=== PATIENT | female | born 1990 | race Native Hawaiian/Other Pacific Islander ===

== ENCOUNTER 2016-06-16 19:07 | Emergency (ER) | payer BC, OTHER ==
[~2016-06-16] VITALS: Ht 160 cm; Wt 71.7 kg
--- OUTSIDE RECORDS SUMMARY | 2016-06-16 19:12 | XMS REPORT ---
Author Author TYRESE GORDON [facility] eClinicalWorks Address Unknown Phone Unavailable Care Team Providers Care Cad Cam Programmer Name Role Phone TYRESE GORDON CP Unavailable Allergies, Adverse Reactions, Alerts Substance Reaction Event Type N.K.D.A. Info Not Available Non Drug Allergy Problems Problem Type Condition Code Onset Dates Condition Status Assessment Encounter for counseling regarding contraception Z30.9 Active Assessment Oral contraceptive pill surveillance Z30.41 Active Problem Oral contraceptive pill surveillance Z30.41 Active Assessment Routine screening for STI (sexually transmitted infection) Z11.3 Active Assessment Screening for malignant neoplasm of cervix Z12.4 Active Medications Medication Code System Code Instructions Start Date End Date Status Dosage Nuris 28 [facility] [address]-55 3-0.03 MG Orally Once a day Mar 12, 2015 1 tablet Procedures Procedure Coding System Code Date No Charge CPT-4 36300 Mar 12, 2015 TRICHOMONAS VAGIN, DIR PROBE CPT-4 69330 Mar 12, 2015 URINE TEST CPT-4 63054 Mar 12, 2015 SPECIMEN HANDLING CPT-4 50216 Mar 12, 2015 CULTURE, BACTERIA, OTHER CPT-4 35513 Mar 12, 2015 Office Visit, New Pt., Level 3 CPT-4 96350 Mar 12, 2015 Vital Signs Date/Time: Mar 12, 2015 Temperature 97.9 F Weight 156.0 lbs Height 64 in BMI 26.77 Index Blood Pressure Diastolic 68 mmHg Blood Pressure Systolic 106 mmHg Cardiac Monitoring Heart Rate 76 bpm Results Name Result Date Reference Range Unit Abnormality Flag TEST, URINE (IN HOUSE) ----RESULTS negative [id number] ----Lot # [id number] ----Control + [id number] ----Exp date [id number] CULTURE, GENITAL ----Genital Culture, Routine Final report [id number] A Summary Purpose eClinicalWorks Submission
[2016-06-16] MEDS ORDERED: IBUPROFEN TABLET 200 MG TAB PO STA (19:42)
--- NOTE | 2016-06-16 20:45 | ED Cough/URI ---
General Chief Complaint: Fever-Adult/Adol Stated Complaint: FEVER Nursing Triage Note: PT ET INTERPRETOR REPORT FEVER STARTING TUES. SHE C/O SORE THROAT, BODY ACHES, COUGH, RUNNY NOSE, CLOUDY URINE. REPORTS SHE WAS TREATED FOR STREP THROAT 3-4 WEEKS AGO. History of Present Illness Time seen by provider: 20:25 Initial Comments Evaluation for cough and fever 3-4 days Timing/Duration: week Severity/Quality: dry cough Allergies and Home Medications Allergies Coded Allergies: No Known Drug Allergies (Unverified , 06/16/16) Home Medications Ciprofloxacin HCl 500 Mg Tablet #6 500 MG PO BID Prescribed by: JOSHUA MCNAMARA on 06/16/162144 Phenazopyridine HCl 100 Mg Tablet #6 100 MG PO Q8H Prescribed by: JOSHUA MCNAMARA on 06/16/162144 Constitutional: no symptoms reported see HPI EENTM: no symptoms reported see HPINo throat pain Respiratory: see HPI cough Cardiovascular: no symptoms reported see HPI Gastrointestinal: no symptoms reported see HPI Genitourinary: see HPI dysuria frequency hematuria pain Musculoskeletal: no symptoms reported see HPI Skin: no symptoms reported see HPI Psychiatric/Neurological: No Symptoms Reported See HPI Hematologic/Lymphatic: No Symptoms Reported See HPI Immunological/Allergic: no symptoms reported see HPI All Other Systems Reviewed Negative Unless Noted: Yes Past Kpofqgy-Rseszt-Ehlzce Hx Patient Social History Alcohol Use: Denies Use Recreational Drug Use: No Smoking Status: Never a Smoker 2nd Hand Smoke Exposure: No Recent Foreign Travel: No Contact w/Someone Who Travel: No Recent Infectious Disease Expo: No Recent Hopitalizations: No Seasonal Allergies Seasonal Allergies: No Surgeries HX Surgeries: No Respiratory Hx Respiratory Disorders: No Cardiovascular Hx Cardiac Disorders: No Neurological Hx Neurological Disorders: No Reviewed Nursing Assessment Reviewed/Agree w Nursing PMH: Yes Physical Exam Vital Signs Vital Sign - Last 12Hours 06/16/16 19:25 Temp 103.6 Pulse 135 Resp 20 B/P 116/73 Capillary Refill : Less Than 3 Seconds General Appearance: WD/WN no apparent distress Eyes: Bilateral Eye EOMI, Bilateral Eye Normal Inspection, Bilateral Eye PERRL HEENT: PERRL/EOMI TMs normal pharynx normal Neck: non-tender full range of motion supple normal inspectionNo lymphadenopathy (R), No lymphadenopathy (L) Respiratory: chest non-tender lungs clear normal breath sounds Cardiovascular: normal peripheral pulses regular rate, rhythm no murmur Gastrointestinal: normal bowel sounds non tender soft no organomegaly no pulsatile massNo distended, No guarding, No rebound, other (trace suprapubic pain no CVA tenderness) Neurologic/Psychiatric: no motor/sensory deficits alert normal mood/affect oriented x 3 Skin: normal color warm/dry Lymphatic: no adenopathy Progress/Results/Core Measures Results/Orders Lab Results Laboratory Tests Test 06/16/16 20:50 06/16/16 20:56 Range/Units Group A Streptococcus Screen NEGATIVE NEGATIVE Urine Bacteria LARGE H /HPF Urine Bilirubin NEGATIVE NEGATIVE Urine Casts NONE /LPF Urine Clarity SLIGHTLY CLOUDY Urine Color YELLOW Urine Crystals NONE /LPF Urine Culture Indicated YES Urine Glucose (UA) NEGATIVE NEGATIVE Urine Ketones 2+ H NEGATIVE Urine Leukocyte Esterase 2+ H NEGATIVE Urine Mucus SMALL H /LPF Urine Nitrite NEGATIVE NEGATIVE Urine Protein NEGATIVE NEGATIVE Urine RBC 5-10 H /HPF Urine RBC (Auto) 2+ H NEGATIVE Urine Specific Parrish 1.010 L 1.016-1.022 Urine Squamous Epithelial Cells 10-25 H /HPF Urine Urobilinogen NORMAL NORMAL MG/DL Urine WBC 5-10 H /HPF Urine pH 8 5-9 Micro Results Microbiology 06/16/16 Influenza Types A,B Antigen (TANNA) - Final, Complete My Orders Orders-JOSHUA MCNAMARA Influenza A And B Antigens (06/16/16 19:42) Ibuprofen Tablet (Motrin Tablet) (06/16/16 19:42) Ua Culture If Indicated (06/16/16 20:46) Rapid Strep A Screen (06/16/16 20:52) Urine Culture (06/16/16 20:56) Ciprofloxacin Tablet (Cipro Tablet) (06/17/16 09:00) Phenazopyridine Tablet (Pyridium Tablet) (06/16/16 21:45) Ciprofloxacin Tablet (Cipro Tablet) (06/16/16 21:52) Medications Given in ED Current Medications Medications Dose Ordered Sig/Enedelia Route Start Time Stop Time Status Last Admin Dose Admin Phenazopyridine HCl 100 mg ONCE ONCE PO 06/16/16 21:45 06/16/16 21:46 DC 06/16/16 21:57 100 MG Vital Signs/I&O Vital Sign - Last 12Hours 06/16/16 19:25 Temp 103.6 Pulse 135 Resp 20 B/P 116/73 Blood Pressure Mean: 87 Progress Note : Time: 20:25 Progress Note Initial evaluation completed, will complete a influenza swab, rapid strep, and UA. 2039 Temp down to 100.8 2119 discussed results of tests with patient and her sister, the influenza swab is negative for flu A and B, the UA is indicating a urinary tract infection, the rapid strep is negative. Will start treatment with Cipro 500 mg and Pyridium 200 mg by mouth. 2199 blood pressure 93/59 and pulse 108. Patient encouraged to drink fluids. 2229 patient drank 20 ounces of water. States she is feeling fine. Temp 99.2. Blood pressure 103/73 pulse 88 apically. Patient and her sister verbalized understanding of importance take continue increasing her fluid intake. ECG Initial ECG Impression Date: Jun 16, 2016 Departure Impression Impression: Primary Impression: Urinary tract infection Qualified Code: N30.01 - Acute cystitis with hematuria Additional Impression: Upper respiratory infection Qualified Code: J06.9 - Acute upper respiratory infection, unspecified Disposition: HOME, SELF-CARE Condition: Improved Departure-Patient Inst. Referrals: NO,LOCAL PHYSICIAN (PCP) Primary Care Physician Patient Instructions: Flu, Adult (DC), Urinary Tract Infection, Adult (DC) Add. Discharge Instructions: All discharge instructions reviewed with patient and/or family. Voiced understanding. Increase fluid intake. Drink 1 glass of cranberry juice or eat a couple blueberries daily. Avoid baths, use shower. Take all of antibiotic. Return to emergency department for increased symptoms, increased pain, changes in symptoms, increased blood in urine, or new problems. Scripts Phenazopyridine HCl (Pyridium)100 Mg [id number] Mg PO Q8H Pain #6 TAB Ref 0 Prov:JOSHUA MCNAMARA 06/16/16 Ciprofloxacin HCl (Cipro)500 Mg [id number] Mg PO BID #6 TAB Ref 0 Prov:JOSHUA MCNAMARA 06/16/16 JOSHUA MCNAMARA Jun 16, 2016 20:45
[2016-06-16 21:01] LABS: BILIRUBIN,URINE NEGATIVE (NEGATIVE); KETONES,URINE 2+ (NEGATIVE); LEUKOCYTE ESTERASE ,URINE 2+ (NEGATIVE); NITRITE,URINE NEGATIVE (NEGATIVE); PH,URINE 8 (5-9); PROTEIN,URINE NEGATIVE (NEGATIVE); UROBILINOGEN,URINE NORMAL (NORMAL)
[2016-06-16] MEDS ORDERED: PHENAZOPYRIDINE 100 MG (PYRIDIUM) TABLET PO ONE (21:45)
[2016-06-16] MEDS ORDERED: PHEN-639 PO (21:45)
[2016-06-16] MEDS ORDERED: CIPR-225 PO (21:45)
[2016-06-16] MEDS ORDERED: CIPROFLOXACIN 500 MG (CIPRO) TABLET PO ONE (21:52)
[2016-06-16 22:00] VITALS: BP 93/59
[2016-06-16 22:32] VITALS: BP 103/73
[2016-06-17] MEDS ORDERED: CIPROFLOXACIN 500 MG (CIPRO) TABLET PO SCH (09:00)
== END 2016-06-16 22:32 | disposition home or self-care (01) ==
LOC: ER 19:09
DX: N39.0 Urinary tract infection, site not specified (principal); J06.9 Acute upper respiratory infection, unspecified
CPT/HCPCS: 81000; 87088; 87430; 87804; 99282

== ENCOUNTER → 2017-01-27 | Outpatient (CLI) | payer BC ==
[~2017-01-27] MED LIST: CIPR-225 PO; PHEN-639 PO
--- NOTE | 2017-01-27 19:10 | Diagnostic Imaging Report ---
INDICATION: Size and dates. OB sonography performed in the routine fashion with transabdominal views. FINDINGS: A single live intrauterine fetus is seen measuring 9 weeks 6 days by crown-rump length. Heart rate is 179 beats per minute. There is no subchorionic bleed. There is no overt free fluid. IMPRESSION: Single live intrauterine fetus measuring 9 weeks 6 days in size with no overt abnormality at this time. Recommend followup sonography later in for full anatomical survey. Dictated by: Dictated on workstation # [id number]
== END ==
LOC: RAD 14:57
PROVIDERS: ATTEND Family Medicine
DX: Z36.87 Encounter for antenatal screening for uncertain dates (principal); Z3A.09 9 weeks gestation of pregnancy
CPT/HCPCS: 76801

== ENCOUNTER → 2017-04-07 | Outpatient (CLI) | payer BC ==
--- NOTE | 2017-04-07 13:55 | Diagnostic Imaging Report ---
INDICATION: Unsupervised . TECHNIQUE: Multiple real-time grayscale images were obtained over the gravid uterus. COMPARISON: None. FINDINGS: There is a single live intrauterine fetus which is active. heart rate of 153 beats per minute. Placenta is anterior and does extend into the lower uterine segment measuring approximately 1 cm from the cervical os at this time. Amniotic fluid index is normal. anatomical survey is normal. biometric measurements are currently average for 19 week 6 days. Biometrical measurements are as follows: Biparietal 4.56 cm, age 19 weeks 6 days. Head circumference 16.84 cm, age 19 weeks 4 days. Abdominal circumference 14.42 cm, age 19 weeks 6 days. Femur length 3.24 cm, age 20 weeks 1 days. Sonographic estimate age: 19 weeks 6 days. Sonographic estimated date of delivery: 08/26/2017. Estimated Weight: 318 gm (+/- 46 gm). LMP percentile: 46%. heart rate: 153 beats per minute. number: 1 of 1. IMPRESSION: 1. There is a single live intrauterine fetus with sonographic measurements of 19 weeks 6 days. Sonographic EDC of 08/26/2017. 2. No abnormalities were demonstrated. The placenta is anterior and does extend into the lower uterine segment at this time. Dictated by: Dictated on workstation # [id number]
== END ==
LOC: RAD 12:55
PROVIDERS: ATTEND Family Medicine
DX: Z34.91 Encounter for supervision of normal pregnancy, unspecified, first trimester (principal); Z3A.19 19 weeks gestation of pregnancy
CPT/HCPCS: 76805

== ENCOUNTER → 2017-06-16 | Outpatient (CLI) | payer BC ==
--- NOTE | 2017-06-16 17:02 | Diagnostic Imaging Report ---
INDICATION: Follow-up low-lying placenta. COMPARISON: 04/07/2017. FINDINGS: There is a single live intrauterine fetus. Fetus is currently transverse with head to maternal left. The placenta is anterior. The lower margin of the placenta is now 3.8 cm above the internal os. No evidence of placental abruption. Placenta is estimated grade 2. heartbeat of 142. Amniotic fluid index appears normal. IMPRESSION: 1. There has been cephalad migration of the placenta with no evidence of previa at this time. 2. Fetus is transverse with head to maternal left. Dictated by: Dictated on workstation # [id number]
== END ==
LOC: RAD 13:20
PROVIDERS: ATTEND Family Medicine
DX: Z34.93 Encounter for supervision of normal pregnancy, unspecified, third trimester (principal); Z3A.30 30 weeks gestation of pregnancy
CPT/HCPCS: 76815

== ENCOUNTER 2017-08-29 07:11 | Outpatient (CLI) | payer BC ==
[~2017-08-29] VITALS: Ht 160 cm; Wt 81.2 kg
[2017-08-29 07:25] VITALS: BP 110/68
[2017-08-29 07:45] VITALS: BP 100/61
[2017-08-29] MEDS ORDERED: PREN1TAB86 PO (07:48)
[2017-08-29 08:01] LABS: BILIRUBIN,URINE NEGATIVE (NEGATIVE); COLOR,URINE YELLOW; GLUCOSE, URINE (UA) NEGATIVE (NEGATIVE); KETONES,URINE NEGATIVE (NEGATIVE); LEUKOCYTE ESTERASE ,URINE 2+ (NEGATIVE); NITRITE,URINE NEGATIVE (NEGATIVE); PH,URINE 6.5 (5-9); PROTEIN,URINE 1+ (NEGATIVE); UROBILINOGEN,URINE NORMAL (NORMAL)
[2017-08-29 08:05] VITALS: BP 101/59
[2017-08-29 08:17] LABS: BACTERIA,URINE LARGE /HPF; CLARITY,URINE SLIGHTLY CLOUDY; RBC,URINE 0-2 /HPF; WBC,URINE 25-50 /HPF
--- NOTE | 2017-08-30 11:59 | Physician Query-Final Dx ---
ANTHONY GALLEGO 08/30/17 1159: Clinic Account Progress/Dx Physician Query: Please give diagnosis Date of Service August 29, 2017 at 07:11 VASU RAMIREZ MD 08/31/17 0725: Clinic Account Progress/Dx DIAGNOSIS: Diagnosis 1. Intrauterine at term 40 weeks nonlabor ANTHONY GALLEGO August 30, 2017 11:59 VSAU RAMIREZ MD August 31, 2017 07:25
== END 2017-08-29 08:25 | disposition home or self-care (01) ==
LOC: LDRP 07:11 → WSo 07:11
PROVIDERS: ATTEND Family Medicine
DX: O47.1 False labor at or after 37 completed weeks of gestation (principal); Z3A.40 40 weeks gestation of pregnancy
CPT/HCPCS: 81000; 87088; 99213

== ENCOUNTER 2017-08-29 23:46 | Inpatient (IN) | payer BC ==
[~2017-08-29] VITALS: Ht 160 cm; Wt 80.7 kg
[~2017-08-29 23:46] MED LIST changes: +PREN1TAB86 PO
[2017-08-29 23:59] VITALS: BP 107/65
[2017-08-29] MEDS ORDERED: D5 LR IV SOLUTION 1,000 ML IV ONE (23:59)
[2017-08-30] VITALS (57 sets, daily range): BP systolic 88–127; BP diastolic 52–74
[2017-08-30] MEDS: D5 LR IV SOLUTION 1,000 ML IV SCH ×2 (00:20→04:50)
--- OUTSIDE RECORDS SUMMARY | 2017-08-30 00:31 | XMS REPORT ---
Author Author TYRESE GORDON [facility] eClinicalWorks Address Unknown Phone Unavailable Care Team Providers Care Asp Developer Name Role Phone TYRESE GORDON CP Unavailable [...] Date End Date Status Dosage Nuris 28 [facility] [address]-81 3-0.03 MG Orally Once a day Mar 12, 2015 1 tablet Procedures Procedure Coding System Code Date No Charge CPT-4 91218 Mar 12, 2015 TRICHOMONAS VAGIN, DIR PROBE CPT-4 65731 Mar 12, 2015 URINE TEST CPT-4 07723 Mar 12, 2015 SPECIMEN HANDLING CPT-4 97427 Mar 12, 2015 CULTURE, BACTERIA, OTHER CPT-4 29498 Mar 12, 2015 Office Visit, New Pt., Level 3 CPT-4 41004 Mar 12, 2015 Vital Signs Date/Time: Mar 12, 2015 Temperature 97.9 F Weight 156.0 lbs Height 64 in BMI 26.77 Index Blood Pressure Diastolic 68 mmHg Blood Pressure Systolic 106 mmHg Cardiac Monitoring Heart Rate 76 bpm Results Name Result Date Reference Range Unit Abnormality Flag TEST, URINE (IN HOUSE) ----RESULTS negative [id number] ----Lot # [id number] ----Control + [id number] ----Exp date [id number] CULTURE, GENITAL ----Genital Culture, Routine Final report [id number] Summary Purpose eClinicalWorks Submission
--- OUTSIDE RECORDS SUMMARY | 2017-08-30 00:31 | XMS REPORT ---
Author Author ZAIRAMINE [facility] Address [address] [place] [address] Care Team Providers Care Customer Data Technician Name Role Phone ZAIRAGWEN BLANDONY Unavailable PROBLEMS Type Condition ICD9-CM Code GLH44-RM Code Onset Dates Condition Status SNOMED Code Problem Seasonal allergic rhinitis, unspecified allergic rhinitis trigger J30.2 Active 663950326 Problem Oral contraceptive pill surveillance Z30.41 Active 961707886 ALLERGIES No Known Allergies ENCOUNTERS Encounter Location Date Diagnosis [place] [address] [address] August, [address] [address] August, care in third trimester Z34.93 [place] [address] [address] Jul, Normal , first Z34.00 [place] [address] [place] [id number] [place] [address] Jul, care in third trimester Z34.93 [place] [address] [place] [id number] [place] [address] Jun, care in third trimester Z34.93 and Encounter for immunization Z23 [place] [address] [address] Jun, care in third trimester Z34.93 [place] [address] [place] [id number] [place] [address] May, care in third trimester Z34.93 [place] [address] [address] 07 May, 2017 care in second trimester Z34.92 [facility] [place] [address] [address] 17 Apr, 2017 Fever R50.9 and Acute nasopharyngitis J00 [place] [address] [place] [id number] [place] [address] 10 Apr, 2017 20 weeks gestation of Z3A.20 [place] [address] [place] [id number] [place] [address] 13 Mar, 2017 care in first trimester Z34.91 [place] [address] [place] [id number] [place] [address] 15 Feb, 2017 Normal , first Z34.00 [place] [address] [place] [id number] [place] [address] 18 Jan, 2017 Normal , first Z34.00 and with 8 completed weeks gestation Z3A.08 [place] [address] [place] [id number] [place] [address] Jan, [place] [address] [place] [id number] [place] [address] Jan, test positive Z32.01 [facility] [place] [address] [address] [place] [id number] [place] [address] Jul, Dysuria R30.0 and Seasonal allergic rhinitis, unspecified allergic rhinitis trigger J30.2 [facility] [address] [place] [id number] [place] [address] 08 May, 2016 Sore throat J02.9 [facility] [place] [id number] [place] [address] Jul, Dysuria R30.0 and Acute urinary tract infection N39.0 [place] [address] [place] [id number] [place] [address] Jun, 2016 Well woman exam Z01.419 ; BMI 26.0-26.9,adult Z68.26 and Oral contraceptive pill surveillance Z30.41 [facility] [address] [facility] [id number] [place] [address] 10 Jun, 2015 Oral contraceptive pill surveillance Z30.41 [facility] [address] [facility] [id number] [address] 10 Jun, 2015 Oral contraceptive pill surveillance Z30.41 [facility] [address] [facility] [id number] [address] 10 Mar, 2015 Encounter for counseling regarding contraception Z30.9 ; Oral contraceptive pill surveillance Z30.41 ; Routine screening for STI ( sexually transmitted infection) Z11.3 and Screening for malignant neoplasm of cervix Z12.4 IMMUNIZATIONS No Known Immunizations SOCIAL HISTORY Never Assessed REASON FOR VISIT OB Flowsheet History--tcuppettRN PLAN OF CARE VITAL SIGNS MEDICATIONS Unknown Medications RESULTS No Results PROCEDURES No Known procedures INSTRUCTIONS MEDICATIONS ADMINISTERED No Known Medications
--- OUTSIDE RECORDS SUMMARY | 2017-08-30 00:31 | XMS REPORT ---
Author Author TORRI BENITES [facility] Address [address] [place] [address] Care Team Providers Care Senior Strategy Manager Name Role Phone KAMARI TORRI Unavailable PROBLEMS Type Condition ICD9-CM Code WHG49-IN Code Onset Dates Condition Status SNOMED Code Problem Seasonal allergic rhinitis, unspecified allergic rhinitis trigger J30.2 Active 356347509 Problem Oral contraceptive pill surveillance Z30.41 Active 090106005 ALLERGIES No Information ENCOUNTERS Encounter Location Date Diagnosis [place] [address] [address] [place] [id number] [place] [address] August, [address] [address] August, care in third trimester Z34.93 [place] [address] [place] [id number] [place] [address] Jul, Normal , first Z34.00 [place] [address] [place] [id number] [place] [address] Jul, care in third trimester Z34.93 [place] [address] [place] [id number] [place] [address] Jun, care in third trimester Z34.93 and Encounter for immunization Z23 [place] [address] [place] [id number] [place] [address] Jun, care in third trimester Z34.93 [place] [address] [place] [id number] [place] [address] May, care in third trimester Z34.93 [place] [address] [place] [id number] [place] [address] May, care in second trimester Z34.92 [facility] [place] [address], [place] [address] 17 Apr, 2017 Fever R50.9 and Acute nasopharyngitis J00 [place] [address] [place] [id number] [place] [address] 10 Apr, 2017 20 weeks gestation of Z3A.20 [place] [address] [address] 13 Mar, 2017 care in first trimester Z34.91 [place] [address] [place] [id number] [place] [address] 15 Feb, 2017 Normal , first Z34.00 [place] [address] [place] [id number] [place] [address] 18 Jan, 2017 Normal , first Z34.00 and with 8 completed weeks gestation Z3A.08 [place] [address] [place] [id number] [place] [address] Jan, [place] [address] [place] [id number] [place] [address] Jan, test positive Z32.01 [facility] [place] [address] [address] [place] [id number] [place] [address] Jul, Dysuria R30.0 and Seasonal allergic rhinitis, unspecified allergic rhinitis trigger J30.2 [facility] [place] [id number] [place] [address] 08 May, 2016 Sore throat J02.9 [facility] [place] [id number] [place] [address] Jul, Dysuria R30.0 and Acute urinary tract infection N39.0 [place] [address] [place] [id number] [place] [address] Jun, 2016 Well woman exam Z01.419 ; BMI 26.0-26.9,adult Z68.26 and Oral contraceptive pill surveillance Z30.41 [facility] [address] [facility] [id number] [place] [address] 10 Jun, 2015 Oral contraceptive pill surveillance Z30.41 [facility] [address] [facility] [id number] [place] [address] 10 Jun, 2015 Oral contraceptive pill surveillance Z30.41 [facility] [address] [facility] [id number] [place] [address] 10 Mar, 2015 Encounter for counseling regarding contraception Z30.9 ; Oral contraceptive pill surveillance Z30.41 ; Routine screening for STI ( sexually transmitted infection) Z11.3 and Screening for malignant neoplasm of cervix Z12.4 IMMUNIZATIONS No Known Immunizations SOCIAL HISTORY Never Assessed REASON FOR VISIT test (walk-in), urine PLAN OF CARE VITAL SIGNS MEDICATIONS Unknown Medications RESULTS Name Result Date Reference Range TEST, URINE (IN HOUSE) 2017-01-02 RESULTS POSITIVE Lot # [id number] Control + Exp date PROCEDURES Procedure Date Ordered Result Body Site URINE TEST Jan 02, 2017 INSTRUCTIONS MEDICATIONS ADMINISTERED No Known Medications
--- OUTSIDE RECORDS SUMMARY | 2017-08-30 00:31 | XMS REPORT ---
Author Author RAHUL YANG [facility] Address [address] [place] [address] Care Team Providers Care Precinct Captain Name Role Phone RAHUL YANG Unavailable PROBLEMS Type Condition ICD9-CM Code VZO70-EX Code Onset Dates Condition Status SNOMED Code Problem Seasonal allergic rhinitis, unspecified allergic rhinitis trigger J30.2 Active 726329722 Problem Oral contraceptive pill surveillance Z30.41 Active 430877312 ALLERGIES No Known Allergies SOCIAL HISTORY Never Assessed PLAN OF CARE VITAL SIGNS Height 64 in 2016-05-11 Weight 155.6 lbs 2016-05-11 Temperature 100.6 degrees Fahrenheit 2016-05-11 Heart Rate 116 bpm 2016-05-11 Respiratory Rate 20 2016-05-11 BMI 26.71 kg/m2 2016-05-11 Blood pressure systolic 94 mmHg 2016-05-11 Blood pressure diastolic 68 mmHg 2016-05-11 MEDICATIONS Medication Instructions Dosage Frequency Start Date End Date Duration Status Robitussin Cough Long-Acting Active PredniSONE 20 mg Orally Once a day 2 tablets 24h May, May, 05 days Active Amoxicillin 500 MG Orally 3 times a day 1 capsule 8h May, May, 10 day(s) Active Ibuprofen 200 MG Orally every 6 hrs 1 tablet as needed 6h Active RESULTS Name Result Date Reference Range STREP A (IN HOUSE) 2016-05-11 STREP A negative Control + Lot # [id number] Exp date PROCEDURES Procedure Date Ordered Result Body Site STREP A ASSAY W/OPTIC May 11, 2016 IMMUNIZATIONS No Known Immunizations
--- OUTSIDE RECORDS SUMMARY | 2017-08-30 00:31 | XMS REPORT ---
Author Author OSIRIS KOHLER [facility] eClinicalWorks Address Unknown Phone Unavailable Care Team Providers Care Cotton Bag Sewer Name Role Phone OSIRIS KOHLER CP Unavailable Allergies, Adverse Reactions, Alerts Substance Reaction Event Type N.K.D.A. Info Not Available Non Drug Allergy Problems Problem Type Condition Code Onset Dates Condition Status Assessment Dysuria R30.0 Active Assessment Acute urinary tract infection N39.0 Active Problem Oral contraceptive pill surveillance Z30.41 Active Medications Medication Code System Code Instructions Start Date End Date Status Dosage Cipro [facility] [address]-97 500 MG Orally Twice a day July 24, 2015 August 03, 2015 1 tablet Nuris 28 [facility] [address]-68 3-0.03 MG Orally Once a day Mar 12, 2015 1 tablet Procedures Procedure Coding System Code Date URINALYSIS, AUTO, W/O SCOPE CPT-4 18330 July 24, 2015 Office Visit, Est Pt., Level 3 CPT-4 28544 July 24, 2015 URINE CULTURE/COLONY COUNT CPT-4 03220 July 24, 2015 Vital Signs Date/Time: July 24, 2015 Temperature 98.5 F Weight 154.6 lbs Height 64 in BMI 26.53 Index Blood Pressure Diastolic 66 mmHg Blood Pressure Systolic 112 mmHg Cardiac Monitoring Heart Rate 76 bpm Results Name Result Date Reference Range Unit Abnormality Flag CULTURE, URINE ----Urine Culture, Routine Final report [id number] ----Result 1 No growth [id number] Summary Purpose eClinicalWorks Submission
[2017-08-30 00:48] LABS: BASOPHILS % (AUTO) 0 % (0-10); EOSINOPHILS # (AUTO) 0.1 10^3/uL (0.0-0.3); EOSINOPHILS % (AUTO) 1 % (0-10); HEMATOCRIT 34 % (35-52); HEMOGLOBIN 11.3 G/DL (11.5-16.0); LYMPHOCYTES # (AUTO) 2.1 X 10^3 (1.0-4.0); LYMPHOCYTES % (AUTO) 14 % (12-44); MEAN CORPUSCULAR HEMOGLOBIN 28 PG (25-34); MEAN CORPUSCULAR HGB CONC 34 G/DL (32-36); MEAN CORPUSCULAR VOLUME 83 FL (80-99); MONOCYTES # (AUTO) 0.7 X 10^3 (0.0-1.0); MONOCYTES % (AUTO) 5 % (0-12); NEUTROPHILS # (AUTO) 11.7 X 10^3 (1.8-7.8); NEUTROPHILS % (AUTO) 80 % (42-75); PLATELET COUNT 292 10^3/uL (130-400); RED BLOOD COUNT 4.04 10^6/uL (4.35-5.85); RED CELL DISTRIBUTION WIDTH 13.6 % (10.0-14.5); WHITE BLOOD COUNT 14.5 10^3/uL (4.3-11.0)
[2017-08-30] MEDS ORDERED: SUFENTA 0.6MCG/ML BUPIVA 0.125 100 ML ONE (01:50)
[2017-08-30] MEDS ORDERED: fentaNYL INJECTION 100 MCG/2 ML AMP ONE ×2 (03:50→12:18)
[2017-08-30] MEDS ORDERED: LACTATED RINGERS 1,000 ML IV ONE (05:10)
[2017-08-30] MEDS ORDERED: diphenhydrAMINE 50 MG/ML INJ (BENADRYL) IV PRN ×3 (05:15→14:15)
[2017-08-30] MEDS ORDERED: ONDANSETRON 4 MG/2 ML (SDV) Z0FRAN IV PRN ×3 (05:15→14:15)
[2017-08-30] MEDS ORDERED: METOCLOPRAMIDE INJ 10 MG/2 ML (REGLAN) IV PRN (05:15)
[2017-08-30] MEDS ORDERED: NALOXONE 0.4 MG/ML 1 ML (NARCAN) VIAL IV PRN ×4 (05:15→14:15)
[2017-08-30] MEDS ORDERED: EPIDURAL (SUFENTA 0.6MCG/ML BUPIVA 0.125%) 100 ML BAG EPI PRN (05:15)
[2017-08-30] MEDS ORDERED: CATHETER FLUSH 10 ML SYR IV SCH (06:00)
--- NOTE | 2017-08-30 07:01 | History & Physical-OB ---
OB - Chief Complaint & HPI Date/Time Date of Admission: Date of Admission: August 30, 2017 at 00:01 Time Seen by Provider: 07:00 Chief Complaint/History OB-Reason for Admission/Chief: Onset of Labor Hx : 1 Hx Para: 0 Expected Date of Delivery: August 26, 2017 Gestational Age in Weeks: 40 Gestational Age in Days: 4 Admission Nurse Assessment Rev: Yes History of Labs GBS negative at 36 weeks Allergies and Home Medications Allergies Coded Allergies: No Known Drug Allergies (Unverified , 06/16/16) Home Medications Vit W-Ca,Fe,FA(<1 mg) 1 Each Tablet, 1 TAB PO DAILY, (Reported) Patient Home Medication List Home Medication List Reviewed: Yes OB - History Hx of Present Care: Yes Ultrasounds: Normal mid trimester US Obstetrical Complications: None Medical Complications: None Obstetrical History Hx : 1 Hx Para: 0 Hx Total # of Abortions (Spona: 0 Patient Past Medical History No chronic medical problems Social History/Family History Recent Infectious Disease Expo: No 2nd Hand Smoke Exposure: No OB - Admission Exam Physical Exam Vitals: Vital Signs 08/30/17 08/30/17 05:15 06:45 Temp 97.9 Pulse 84 Resp 18 B/P (MAP) 109/69 (82) Pulse Ox 98 O2 Delivery Room Air HEENT: Moist Membranes Heart: Rhythm Normal Lungs: Clear Abdomen: Gravid Reflexes: Normal Cervical Dilatation: 3cm (on admission) Membranes: Intact (on admission) Amniotic Fluid: Clear Heart Rate: 140's Accelerations: Accelerations Present Decelerations: Early Decelerations Contractions on Admission: < 5 Minutes Apart Intensity: Moderate Labs Laboratory Tests Test 08/30/17 00:35 Range/Units White Blood Count 14.5 H 4.3-11.0 10^3/uL Red Blood Count 4.04 L 4.35-5.85 10^6/uL Hemoglobin 11.3 L 11.5-16.0 G/DL Hematocrit 34 L 35-52 % Mean Corpuscular Volume 83 80-99 FL Mean Corpuscular Hemoglobin 28 25-34 PG Mean Corpuscular Hemoglobin Concent 34 32-36 G/DL Red Cell Distribution Width 13.6 10.0-14.5 % Platelet Count 292 130-400 10^3/uL Mean Platelet Volume 10.0 7.4-10.4 FL Neutrophils (%) (Auto) 80 H 42-75 % Lymphocytes (%) (Auto) 14 12-44 % Monocytes (%) (Auto) 5 0-12 % Eosinophils (%) (Auto) 1 0-10 % Basophils (%) (Auto) 0 0-10 % Neutrophils # (Auto) 11.7 H 1.8-7.8 X 10^3 Lymphocytes # (Auto) 2.1 1.0-4.0 X 10^3 Monocytes # (Auto) 0.7 0.0-1.0 X 10^3 Eosinophils # (Auto) 0.1 0.0-0.3 10^3/uL Basophils # (Auto) 0.0 0.0-0.1 10^3/uL OB - Assessment/Plan/Diagnosis Assessment Assessment: active labor (at 40w4d) Admission Dx IUP at term 40w4d in labor Admission Status: Inpatient Order (span 2 midnights) Reason for Inpatient Admission: Labor management Plan Plan: Expectant Management Other Plan desires epidural VASU RAMIREZ MD August 30, 2017 07:01
[2017-08-30] MEDS ORDERED: OXYTOCIN/NORMAL SALINE 500 ML IV SCH ×2 (07:19→13:43)
[2017-08-30] MEDS ORDERED: OXYTOCIN/NORMAL SALINE 500 ML IV ONE (07:22)
[2017-08-30] MEDS ORDERED: MEPIVACAINE (CARBOCAINE) 2% 20 ML VIAL ONE (09:45)
[2017-08-30] MEDS ORDERED: LACTATED RINGERS 1,000 ML IV PRN (11:54)
--- NOTE | 2017-08-30 11:57 | Progress Note (SOAP) ---
Subjective Date Seen by Provider: August 30, 2017 Time Seen by Provider: 11:45 Subjective/Events-last exam Patient in labor since early am. She has been pushing for 2 hours without change of station. Caput noted by vaginal exam. Maternal pushing ineffective at this point. Objective Exam Vital Signs Date Time Temp Pulse Resp B/P (MAP) Pulse Ox O2 Delivery O2 Flow Rate FiO2 08/30/17 08:30 85 18 105/65 (78) 99 Room Air 08/30/17 08:15 78 18 106/63 (77) 97 Room Air 08/30/17 08:00 80 18 106/63 (77) 98 Room Air 08/30/17 07:45 82 18 100/64 (76) 98 Room Air 08/30/17 07:30 87 18 103/65 (78) 98 Room Air 08/30/17 07:15 97.4 79 18 102/66 (78) 97 Room Air 08/30/17 07:00 84 18 109/69 (82) 98 Room Air 08/30/17 06:45 84 18 109/69 (82) 98 Room Air 08/30/17 06:30 89 18 107/69 (82) 98 Room Air 08/30/17 06:15 75 18 104/62 (76) 98 Room Air 08/30/17 06:00 79 18 105/65 (78) 99 Room Air 08/30/17 05:45 87 18 104/65 (78) 98 Room Air 08/30/17 05:30 85 18 114/54 (74) 98 Room Air 08/30/17 05:15 97.9 71 18 109/71 (84) 97 Room Air 08/30/17 05:00 80 18 97 Room Air 08/30/17 04:45 80 18 109/67 (81) 98 Room Air 08/30/17 04:40 71 18 108/64 (79) 97 Room Air 08/30/17 04:35 75 18 110/65 (80) 97 Room Air 08/30/17 04:30 71 18 103/59 (74) 96 Room Air 08/30/17 04:25 77 18 96/62 (73) 97 Room Air 08/30/17 04:20 74 18 96/62 (73) 96 Room Air 08/30/17 04:15 68 18 88/52 (64) 97 Room Air 08/30/17 04:10 74 18 102/65 (77) 97 Room Air 08/30/17 04:06 76 18 97/61 (73) 97 Room Air 08/30/17 04:03 71 18 99/60 (73) 97 Room Air 08/30/17 04:00 82 18 97/59 (72) 97 Room Air 08/30/17 03:54 81 18 104/64 (77) 97 Room Air 08/30/17 03:51 82 18 109/62 (78) 97 Room Air 08/30/17 03:48 90 18 110/67 (81) 97 Room Air 08/30/17 03:45 99 18 95 Room Air 08/30/17 03:42 86 18 116/62 (80) 97 Room Air 08/30/17 03:39 91 18 116/62 (80) Room Air 08/30/17 03:36 114 18 106/64 (78) 97 Room Air 08/30/17 03:33 79 18 109/62 (78) 97 Room Air 08/30/17 03:30 78 18 107/72 (84) Room Air 08/30/17 03:27 88 18 108/71 (83) 96 Room Air 08/30/17 03:24 80 18 104/65 (78) Room Air 08/30/17 03:21 74 18 102/70 (81) 96 Room Air 08/30/17 03:18 73 18 115/70 (85) 98 Room Air 08/30/17 03:15 81 18 105/71 (82) 99 Room Air 08/30/17 02:58 88 18 107/59 (75) 98 Room Air 08/30/17 02:20 71 18 107/62 (77) Room Air 08/29/17 23:59 98.1 76 18 107/65 (79) Room Air I & O 08/30/17 07:00 Intake Total 2000 ml Output Total 400 ml Balance 1600 ml Capillary Refill : General Appearance: Mild Distress (with contractions otherwise NAD) Other comments Cervical exam: complete, -2 station, with caput noted. Results Lab Laboratory Tests 08/30/17 00:35: White Blood Count 14.5H, Red Blood Count 4.04L, Hemoglobin 11.3L, Hematocrit 34L , Mean Corpuscular Volume 83, Mean Corpuscular Hemoglobin 28, Mean Corpuscular Hemoglobin Concent 34, Red Cell Distribution Width 13.6, Platelet Count 292, Mean Platelet Volume 10.0, Neutrophils (%) (Auto) 80H, Lymphocytes (%) (Auto) 14 , Monocytes (%) (Auto) 5, Eosinophils (%) (Auto) 1, Basophils (%) (Auto) 0, Neutrophils # (Auto) 11.7H, Lymphocytes # (Auto) 2.1, Monocytes # (Auto) 0.7, Eosinophils # (Auto) 0.1, Basophils # (Auto) 0.0 Assessment/Plan Assessment/Plan Assess & Plan/Chief Complaint 1. IUP at 40w4d in active labor with ineffective maternal pushing for vaginal . head position essentially unchanged for 2 hours of initially intense good pushing. Case discussed with OB and will plan on primary LTCS. Surgery crew notified. Clinical Quality Measures DVT/VTE Risk/Contraindication: Risk Factor Score Per Nursin RFS Level Per Nursing on Admit: 1=Low/No VTE PPX VASU RAMIREZ MD August 30, 2017 11:57
[2017-08-30] MEDS ORDERED: CITRIC ACID/SOB CIT (BICITRA) 30 ML UDC PO ONE (12:00)
[2017-08-30] MEDS ORDERED: METOCLOPRAMIDE INJ 10 MG/2 ML (REGLAN) IV ONE (12:00)
[2017-08-30] MEDS ORDERED: AZITHROMYCIN INJECTION 500 MG in NS (IVPB) 250 ML IV ONE (12:00)
[2017-08-30] MEDS ORDERED: TERBUTALINE INJ 1 MG/ML (BRETHINE) AMP SC ONE (12:00)
[2017-08-30] MEDS ORDERED: raNItidine 50 MG/2 ML INJ (ZANTAC) IV ONE (12:00)
[2017-08-30] MEDS ORDERED: FAMOTIDINE 20MG/2ML IV (PEPCID) IV ONE (12:00)
[2017-08-30] MEDS ORDERED: ceFAZolin INJECTION 1,000 MG in NS (IVPB) 50 ML IV ONE (12:00)
[2017-08-30] MEDS ORDERED: LIDOCAINE PF 2% 5 ML (XYLOCAINE) VIAL ONE ×2 (12:18→12:57)
[2017-08-30] MEDS ORDERED: ONDANSETRON 4 MG/2 ML (SDV) Z0FRAN ONE (12:23)
[2017-08-30] MEDS ORDERED: BUPIVACAINE SPINAL 0.75% (SENSORCAINE) 2 ML AMP ONE (12:25)
--- NOTE | 2017-08-30 12:42 | Progress Note-Pre Operative ---
Pre-Operative Progress Note H&P Reviewed The H&P was reviewed, patient examined and no changes noted. Risks vs benefits of cesaran section explained to patient and SO. Consent signed. Ancef and Azithromycin given (due to rOm). Risk of bleeding, infection , injury to bowel, bladder and ureter. Date Seen by Provider: August 30, 2017 Time Seen by Provider: 12:15 Date H&P Reviewed: August 30, 2017 Time H&P Reviewed: 12:15 Pre-Operative Diagnosis: Failure to descend, arrest of descent. JAYNE GREEN DO August 30, 2017 12:42
[2017-08-30] MEDS ORDERED: OXYTOCIN/NORMAL SALINE 1,000 ML IV ONE (12:57)
[2017-08-30] MEDS ORDERED: DEXAMETHASONE 10 MG/ML (DECADRON) 1 ML VIAL ONE (13:32)
[2017-08-30] MEDS ORDERED: KETOROLAC 30 MG/ML VIAL ONE (13:32)
[2017-08-30] MEDS ORDERED: D5 LR IV SOLUTION 1,000 ML IV SCH (13:43)
--- NOTE | 2017-08-30 13:43 | Cesarean Section Operative ---
Procedure Procedure Note Pre-operative Diagnosis: Mallory Mckay is a 28 /Para 1 / 0,Gestational Age 40 4/7 weeks with arrest of descent Post-operative Diagnosis: same Procedure: Primary low transverse section Physician: JAYNE GREEN Journeyman Welder: John Contreras MD; assistant softball coach necessary to assit with retraction of important neurovascular structures. Estimated blood loss: 350 mL Disposition: stable Findings: Viable male infant, Apgars 8/9, weight 8#4 oz, intact placenta, 3vc, normal appearing uterus, tubes, and ovaries. Indications:Mallory Mckay is a 28 /Para 1 / 0,Gestational Age 40 4/7 weeks with arrest of descent Procedure Details: The patient was seen in pre-op and the procedure was discussed with the patient in full, including the risks, benefits, and alternatives. All questions were answered. The patient was taken to the operating room and a time out was performed, verifying patient and procedure. After spinal anesthesia was placed by our anesthesia colleagues, the patient was placed in the dorsal supine with leftward tilt for uterine displacement.~ Her abdomen was then prepped and draped in the typical sterile fashion. A Pfannenstiel skin incision was made using a scalpel and carried down through the underlying fascia. The fascia was incised in the midline and tented up using Mylene clamps. On both the inferior and superior fascia side the rectus muscle was dissected off bluntly and sharply using Broussard scissors. The peritoneum was identified and entered bluntly in the midline. This was then stretched laterally using manual strength. After entering the abdominal cavity and confirming lack of intraperitoneal adhesions, a large David retractor was placed and the lower uterine segment was visualized. A bladder flap was created with the use of Metzenbaum scissors.~ A scalpel was utilized to make a low transverse uterine incision. Amniotomy was performed with an Allis clamp with return of clear fluid. The infant's head was grasped and brought to the level of the incision. Fundal pressure was applied and was delivered without difficulty. Mouth and nares were suctioned with bulb suction. After the umbilical cord was clamped and cut, the infant was handed off to the pediatric staff. A sample of cord blood was then obtained. The placenta was delivered intact via uterine massage. The uterus was exteriorized and cleared of all clots and debris. The uterine incision was closed using 0 Vicryl in a running locked fashion. A second imbricated layer was placed using 0 Vicryl in a running fashion as well. The uterus was flexed forward and the posterior rectouterine space was inspected and cleared of all clots and debris. Again the hysterotomy site was examined and hemostasis was observed. The bilateral tubes and ovaries appeared normal. The uterus was placed back into the abdominal cavity and abdominal gutters were cleared of all clots and debris. A final check of the uterine incision showed it to be hemostatic. The peritoneum was closed using 3-0 Vicryl in a running fashion. The fascia was closed with 0 Vicryl in a running fashion. The subcutaneous space was hemostatic, and irrigated. The subcutaneous space was closed with 3-0 Plain in several single interrupted stitches. The skin was then closed using 4- 0 Monocryl in a running subcuticular fashion. The skin edges were reapproximated together and were hemostatic. A pressure dressing was applied. All sponge, lap and needle counts were correct at the end of the procedure per nursing. Vitals - Labs Vital Signs - I&O Vital Signs Date Time Temp Pulse Resp B/P (MAP) Pulse Ox O2 Delivery O2 Flow Rate FiO2 08/30/17 08:30 85 18 105/65 (78) 99 Room Air 08/30/17 08:15 78 18 106/63 (77) 97 Room Air 08/30/17 08:00 80 18 106/63 (77) 98 Room Air 08/30/17 07:45 82 18 100/64 (76) 98 Room Air 08/30/17 07:30 87 18 103/65 (78) 98 Room Air 08/30/17 07:15 97.4 79 18 102/66 (78) 97 Room Air 08/30/17 07:00 84 18 109/69 (82) 98 Room Air 08/30/17 06:45 84 18 109/69 (82) 98 Room Air 08/30/17 06:30 89 18 107/69 (82) 98 Room Air 08/30/17 06:15 75 18 104/62 (76) 98 Room Air 08/30/17 06:00 79 18 105/65 (78) 99 Room Air 08/30/17 05:45 87 18 104/65 (78) 98 Room Air 08/30/17 05:30 85 18 114/54 (74) 98 Room Air 08/30/17 05:15 97.9 71 18 109/71 (84) 97 Room Air 08/30/17 05:00 80 18 97 Room Air 08/30/17 04:45 80 18 109/67 (81) 98 Room Air 08/30/17 04:40 71 18 108/64 (79) 97 Room Air 08/30/17 04:35 75 18 110/65 (80) 97 Room Air 08/30/17 04:30 71 18 103/59 (74) 96 Room Air 08/30/17 04:25 77 18 96/62 (73) 97 Room Air 08/30/17 04:20 74 18 96/62 (73) 96 Room Air 08/30/17 04:15 68 18 88/52 (64) 97 Room Air 08/30/17 04:10 74 18 102/65 (77) 97 Room Air 08/30/17 04:06 76 18 97/61 (73) 97 Room Air 08/30/17 04:03 71 18 99/60 (73) 97 Room Air 08/30/17 04:00 82 18 97/59 (72) 97 Room Air 08/30/17 03:54 81 18 104/64 (77) 97 Room Air 08/30/17 03:51 82 18 109/62 (78) 97 Room Air 08/30/17 03:48 90 18 110/67 (81) 97 Room Air 08/30/17 03:45 99 18 95 Room Air 08/30/17 03:42 86 18 116/62 (80) 97 Room Air 08/30/17 03:39 91 18 116/62 (80) Room Air 08/30/17 03:36 114 18 106/64 (78) 97 Room Air 08/30/17 03:33 79 18 109/62 (78) 97 Room Air 08/30/17 03:30 78 18 107/72 (84) Room Air 08/30/17 03:27 88 18 108/71 (83) 96 Room Air 08/30/17 03:24 80 18 104/65 (78) Room Air 08/30/17 03:21 74 18 102/70 (81) 96 Room Air 08/30/17 03:18 73 18 115/70 (85) 98 Room Air 08/30/17 03:15 81 18 105/71 (82) 99 Room Air 08/30/17 02:58 88 18 107/59 (75) 98 Room Air 08/30/17 02:20 71 18 107/62 (77) Room Air 08/29/17 23:59 98.1 76 18 107/65 (79) Room Air I & O 08/30/17 07:00 Intake Total 2000 ml Output Total 400 ml Balance 1600 ml Labs Laboratory Tests 08/30/17 00:35: White Blood Count 14.5H, Red Blood Count 4.04L, Hemoglobin 11.3L, Hematocrit 34L , Mean Corpuscular Volume 83, Mean Corpuscular Hemoglobin 28, Mean Corpuscular Hemoglobin Concent 34, Red Cell Distribution Width 13.6, Platelet Count 292, Mean Platelet Volume 10.0, Neutrophils (%) (Auto) 80H, Lymphocytes (%) (Auto) 14 , Monocytes (%) (Auto) 5, Eosinophils (%) (Auto) 1, Basophils (%) (Auto) 0, Neutrophils # (Auto) 11.7H, Lymphocytes # (Auto) 2.1, Monocytes # (Auto) 0.7, Eosinophils # (Auto) 0.1, Basophils # (Auto) 0.0 JAYNE GREEN DO August 30, 2017 1:43 pm
[2017-08-30] MEDS ORDERED: TETANUS,DIPTH,PERTUSS P/F (BOOSTRIX) 0.5 ML VIAL IM SCH (13:45)
[2017-08-30] MEDS ORDERED: MEASLES,MUMPS,RUBELLA 1 EA INJ SC SCH (13:45)
[2017-08-30] MEDS ORDERED: HYDROmorphone 1 MG/ML (DILAUDID) 1 ML SYRINGE IV PRN (13:45)
[2017-08-30] MEDS: KETOROLAC 30 MG/ML VIAL IVP SCH ×2 (13:45→19:57)
[2017-08-30] MEDS ORDERED: LACTATED RINGERS 1,000 ML IV SCH (14:02)
[2017-08-30] MEDS: HYDROcodone/APAP 5 MG/325 MG (LORTAB) TAB PO PRN (17:05)
[2017-08-30] MEDS: CATHETER FLUSH 10 ML SYR IV SCH (17:10)
[2017-08-30] MEDS: DOCUSATE SODIUM 100 MG (COLACE) CAP PO SCH (19:57)
[2017-08-31 02:00] VITALS: BP 83/56
[2017-08-31] MEDS: KETOROLAC 30 MG/ML VIAL IVP SCH ×2 (02:02→08:07)
[2017-08-31] MEDS: HYDROcodone/APAP 5 MG/325 MG (LORTAB) TAB PO PRN (06:07)
[2017-08-31 07:07] LABS: BASOPHILS % (AUTO) 0 % (0-10); EOSINOPHILS % (AUTO) 0 % (0-10); HEMATOCRIT 27 % (35-52); HEMOGLOBIN 9.1 G/DL (11.5-16.0); LYMPHOCYTES # (AUTO) 2.5 X 10^3 (1.0-4.0); LYMPHOCYTES % (AUTO) 9 % (12-44); MEAN CORPUSCULAR HEMOGLOBIN 28 PG (25-34); MEAN CORPUSCULAR HGB CONC 34 G/DL (32-36); MEAN CORPUSCULAR VOLUME 84 FL (80-99); MEAN PLATELET VOLUME 9.9 FL (7.4-10.4); MONOCYTES # (AUTO) 1.7 X 10^3 (0.0-1.0); MONOCYTES % (AUTO) 6 % (0-12); NEUTROPHILS # (AUTO) 24.6 X 10^3 (1.8-7.8); NEUTROPHILS % (AUTO) 85 % (42-75); PLATELET COUNT 259 10^3/uL (130-400); RED BLOOD COUNT 3.22 10^6/uL (4.35-5.85); RED CELL DISTRIBUTION WIDTH 13.5 % (10.0-14.5); WHITE BLOOD COUNT 28.8 10^3/uL (4.3-11.0)
--- NOTE | 2017-08-31 07:26 | Postpartum Progress Note ---
Note Note Day # 1 Subjective: Patient is without complaints. Ambulating, voiding. Tolerating a regular diet without nausea or vomiting. Normal lochia. Pain is well controlled with oral pain medications. Up to the shower this AM. Objective: Vital Sign - Last 24 Hours 08/30/17 08/30/17 08/30/17 08/30/17 07:30 07:45 08:00 08:15 Pulse 87 82 80 78 Resp 18 18 18 18 B/P (MAP) 103/65 (78) 100/64 (76) 106/63 (77) 106/63 (77) Pulse Ox 98 98 98 97 O2 Delivery Room Air Room Air Room Air Room Air 08/30/17 08/30/17 08/30/17 08/30/17 08:30 08:45 09:00 09:15 Pulse 85 87 94 98 Resp 18 18 18 18 B/P (MAP) 105/65 (78) 113/70 (84) 118/74 (89) Pulse Ox 99 99 99 99 O2 Delivery Room Air Room Air Room Air Room Air 08/30/17 08/30/17 08/30/17 08/30/17 09:30 09:45 09:52 10:00 Temp 98.7 Pulse 97 100 108 Resp 18 18 18 B/P (MAP) 123/65 (84) 127/63 (84) 111/65 (80) Pulse Ox 99 99 O2 Delivery Room Air Room Air Room Air 08/30/17 08/30/17 08/30/17 08/30/17 10:13 10:15 10:30 10:45 Pulse 74 71 76 Resp 18 18 18 B/P (MAP) 108/65 (79) 115/62 (79) 110/58 (75) O2 Delivery Non Rebreather Non Rebreather Non Rebreather Non Rebreather O2 Flow Rate 10.00 10.00 10.00 10.00 08/30/17 08/30/17 08/30/17 08/30/17 11:00 11:15 11:30 11:45 Temp 97.8 Pulse 94 80 81 Resp 18 18 18 18 B/P (MAP) 109/69 (82) 113/71 (85) 115/63 (80) O2 Delivery Non Rebreather Non Rebreather Non Rebreather Non Rebreather O2 Flow Rate 10.00 10.00 10.00 10.00 08/30/17 08/30/17 08/30/17 08/30/17 12:00 12:15 12:30 14:20 Temp 98.1 Pulse 81 74 101 59 Resp 18 18 18 15 B/P (MAP) 115/63 (80) 111/64 (80) 119/70 (86) 98/59 (72) O2 Delivery Non Rebreather Non Rebreather Non Rebreather Room Air O2 Flow Rate 10.00 10.00 10.00 08/30/17 08/30/17 08/30/17 08/31/17 16:29 16:58 19:55 02:00 Temp 98.4 96.3 97.4 Pulse 66 71 67 Resp 18 18 B/P (MAP) 105/70 (82) 88/52 (64) 83/56 (65) Pulse Ox 98 97 99 O2 Delivery Room Air Room Air Intake and Output 08/30/17 08/30/17 08/31/17 15:00 23:00 07:00 Intake Total 1550 ml 750 ml 600 ml Output Total 100 ml 450 ml Balance 1450 ml 750 ml 150 ml Laboratory Tests Test 08/31/17 06:51 Range/Units White Blood Count 28.8 H 4.3-11.0 10^3/uL Red Blood Count 3.22 L 4.35-5.85 10^6/uL Hemoglobin 9.1 L 11.5-16.0 G/DL Hematocrit 27 L 35-52 % Mean Corpuscular Volume 84 80-99 FL Mean Corpuscular Hemoglobin 28 25-34 PG Mean Corpuscular Hemoglobin Concent 34 32-36 G/DL Red Cell Distribution Width 13.5 10.0-14.5 % Platelet Count 259 130-400 10^3/uL Mean Platelet Volume 9.9 7.4-10.4 FL Neutrophils (%) (Auto) 85 H 42-75 % Lymphocytes (%) (Auto) 9 L 12-44 % Monocytes (%) (Auto) 6 0-12 % Eosinophils (%) (Auto) 0 0-10 % Basophils (%) (Auto) 0 0-10 % Neutrophils # (Auto) 24.6 H 1.8-7.8 X 10^3 Lymphocytes # (Auto) 2.5 1.0-4.0 X 10^3 Monocytes # (Auto) 1.7 H 0.0-1.0 X 10^3 Eosinophils # (Auto) 0.0 0.0-0.3 10^3/uL Basophils # (Auto) 0.0 0.0-0.1 10^3/uL Physical Exam: General - Alert and oriented, no apparent distress Abdomen - Soft, appropriately tender to palpation, non-distended, fundus firm at umbilicus Extremities - no edema, negative Oly's bilaterally Incision- c/d/i Assessment: POD 1 PLTCS Acute blood loss anemia Plan: Routine care. Encourage breast feeding. Encourage ambulation. Ferrous sulfate supplementation. Plan for discharge tomorrow Vitals - Labs Vital Signs - I&O Vital Signs Date Time Temp Pulse Resp B/P (MAP) Pulse Ox O2 Delivery O2 Flow Rate FiO2 08/31/17 02:00 97.4 67 18 83/56 (65) 99 08/30/17 19:55 96.3 71 18 88/52 (64) 97 08/30/17 16:58 Room Air 08/30/17 16:29 98.4 66 18 105/70 (82) 98 Room Air 08/30/17 14:20 98.1 59 15 98/59 (72) Room Air 08/30/17 12:30 101 18 119/70 (86) Non Rebreather 10.00 08/30/17 12:15 74 18 111/64 (80) Non Rebreather 10.00 08/30/17 12:00 81 18 115/63 (80) Non Rebreather 10.00 08/30/17 11:45 81 18 115/63 (80) Non Rebreather 10.00 08/30/17 11:30 97.8 80 18 113/71 (85) Non Rebreather 10.00 08/30/17 11:15 94 18 109/69 (82) Non Rebreather 10.00 08/30/17 11:00 18 Non Rebreather 10.00 08/30/17 10:45 76 18 110/58 (75) Non Rebreather 10.00 08/30/17 10:30 71 18 115/62 (79) Non Rebreather 10.00 08/30/17 10:15 74 18 108/65 (79) Non Rebreather 10.00 08/30/17 10:13 Non Rebreather 10.00 08/30/17 10:00 108 18 111/65 (80) Room Air 08/30/17 09:52 98.7 08/30/17 09:45 100 18 127/63 (84) 99 Room Air 08/30/17 09:30 97 18 123/65 (84) 99 Room Air 08/30/17 09:15 98 18 99 Room Air 08/30/17 09:00 94 18 118/74 (89) 99 Room Air 08/30/17 08:45 87 18 113/70 (84) 99 Room Air 08/30/17 08:30 85 18 105/65 (78) 99 Room Air 08/30/17 08:15 78 18 106/63 (77) 97 Room Air 08/30/17 08:00 80 18 106/63 (77) 98 Room Air 08/30/17 07:45 82 18 100/64 (76) 98 Room Air 08/30/17 07:30 87 18 103/65 (78) 98 Room Air I & O 08/31/17 07:00 Intake Total 2900 ml Output Total 550 ml Balance 2350 ml Labs Laboratory Tests 08/31/17 06:51: White Blood Count 28.8H, Red Blood Count 3.22L, Hemoglobin 9.1L, Hematocrit 27L , Mean Corpuscular Volume 84, Mean Corpuscular Hemoglobin 28, Mean Corpuscular Hemoglobin Concent 34, Red Cell Distribution Width 13.5, Platelet Count 259, Mean Platelet Volume 9.9, Neutrophils (%) (Auto) 85H, Lymphocytes (%) (Auto) 9L , Monocytes (%) (Auto) 6, Eosinophils (%) (Auto) 0, Basophils (%) (Auto) 0, Neutrophils # (Auto) 24.6H, Lymphocytes # (Auto) 2.5, Monocytes # (Auto) 1.7H, Eosinophils # (Auto) 0.0, Basophils # (Auto) 0.0 PRABHJOT VARMA DO August 31, 2017 07:26
[2017-08-31 07:33] LABS: BAND NEUTROPHILS 6 %; BASOPHILS % (MANUAL) 0 %; EOSINOPHILS % (MANUAL) 0 %; LYMPHOCYTES % (MANUAL) 8 %; MONOCYTES % (MANUAL) 2 %; NEUTROPHILS % (MANUAL) 84 %; RBC MORPH NORMAL
[2017-08-31 08:07] VITALS: BP 99/67
[2017-08-31] MEDS: CATHETER FLUSH 10 ML SYR IV SCH (08:07)
[2017-08-31] MEDS: DOCUSATE SODIUM 100 MG (COLACE) CAP PO SCH ×2 (08:07→22:25)
--- NOTE | 2017-08-31 08:48 | Anesthesia-Regional Post-Op ---
Regional Patient Condition Mental Status: Alert, Oriented x3 Circulation: Same as Pre-Op Headache: Absent Sensation: Full Recovery Motor Block: Absent Post Op Complications Complications None Follow Up Care/Instructions Patient Instructions None needed. Anesthesia/Patient Condition Patient is doing well, no complaints, stable vital signs, no apparent adverse anesthesia problems. No complications reported per nursing. ROM PALMA CRNA August 31, 2017 08:48
[2017-08-31] MEDS: IBUPROFEN 600 MG (MOTRIN) TAB PO SCH ×2 (14:37→22:25)
[2017-08-31 14:38] VITALS: BP 100/64
[2017-08-31] MEDS ORDERED: FERROUS SULF 325 MG (IRON) TAB PO SCH (17:00)
[2017-08-31 22:25] VITALS: BP 98/60
[2017-09-01] MEDS: IBUPROFEN 600 MG (MOTRIN) TAB PO SCH ×2 (04:48→09:38)
[2017-09-01 04:49] VITALS: BP 100/57
--- NOTE | 2017-09-01 08:39 | Postpartum Progress Note ---
Post Op Post-operative Day #2 s/p RLTCS Subjective: Patient is without complaints. Ambulating, voiding after reilly removed. Tolerating a regular diet without nausea or vomiting. Normal lochia. Pain is well controlled with oral pain medications. Passing flatus. Objective: 08/31/17 09/01/17 22:25 04:49 Temp 98.3 97.7 Pulse 80 76 Resp 18 18 B/P (MAP) 98/60 (73) 100/57 (71) Pulse Ox 97 98 O2 Delivery Room Air Room Air 09/01/17 00:00 Intake Total 400 ml Output Total 600 ml Balance -200 ml Physical Exam: General - Alert and oriented, no apparent distress Abdomen - Soft, appropriately tender to palpation, non-distended, fundus firm at umbilicus Incision - clean, dry and intact; no erythema or induration, no drainage Extremities - no edema, negative Oly's bilaterally Assessment: 1. post-operative day # 2, status post RLTCS. Recovering well, hemodynamically stable Acute blood loss anemia [ Plan: Routine post-operative care. Encourage breast feeding. Encourage ambulation. VTE prophylaxis: SCDs. Ferrous sulfate supplementation. Plan for discharge today Vitals - Labs Vital Signs - I&O Vital Signs Date Time Temp Pulse Resp B/P (MAP) Pulse Ox O2 Delivery O2 Flow Rate FiO2 09/01/17 04:49 97.7 76 18 100/57 (71) 98 Room Air 08/31/17 22:25 98.3 80 18 98/60 (73) 97 Room Air 08/31/17 14:38 98.7 90 18 100/64 (76) 99 Room Air I & O 09/01/17 07:00 Intake Total 1000 ml Output Total 1700 ml Balance -700 ml JAYNE GREEN DO Sep 01, 2017 08:39
[2017-09-01] MEDS ORDERED: FERR325T18 PO (08:41)
[2017-09-01] MEDS ORDERED: IBUP-844 PO (08:41)
[2017-09-01] MEDS ORDERED: ACHD5005 PO (08:41)
[2017-09-01] MEDS ORDERED: DOCU100C37 PO (08:41)
--- NOTE | 2017-09-01 08:43 | Discharge Inst-Women's Service ---
Discharge Inst-Women's Serv Depart Medication/Instructions New, Converted or Re-Newed RX: RX on Chart Final Diagnosis labor failure to descend OP presentation primary section acute blood loss anemia Consults/Follow Up Additional Follow Up: Yes ([address] Pal for incision check; [address] Contreras) Activity Activity: Activity as Tolerated Driving Instructions: No Driving for 1 Week NO SMOKING: NO SMOKING Nothing Inside Vagina: No Douching, No [place], No Tampons Diet Discharge Diet: No Restrictions Symptoms to Report to : Bleeding Excessive, Pain Increased, Fever Over 101 Degrees F, Vaginal Bleeding Increase, Cramps in Feet or Legs, Vaginal Discharge Foul For Any Problems or Questions: Contact Your Physician Skin/Wound Care Infection Signs and Symptoms: Increased Redness, Foul Odor of Wound, Increased Drainage, Skin Itchy or Has a Rash, Increased Swelling, Temperature Above 101 F Operative Area Clean and Dry: Keep Incision Clean/Dry Stitches/[place]/Dermabond: Dermabond Bathing Instructions: JAYNE Moyer DO Sep 01, 2017 08:43
[2017-09-01 09:36] VITALS: BP 103/64
[2017-09-01] MEDS: DOCUSATE SODIUM 100 MG (COLACE) CAP PO SCH (09:38)
[2017-09-01] MEDS: HYDROcodone/APAP 5 MG/325 MG (LORTAB) TAB PO PRN (10:54)
== END 2017-09-01 11:20 | disposition home or self-care (01) | DRG 765 ==
LOC: WSo 23:46 → LDRP 23:46 → WSo 08-30 → LDRP 08-30 00:01 → WS 08-30 17:04
PROVIDERS: ADMIT Family Medicine; ATTEND Family Medicine
PROC: 10D00Z1 Extraction of Products of Conception, Low, Open Approach (ICD-10-PCS; principal; 2017-08-30 12:42)
DX: O64.0XX0 Obstructed labor due to incomplete rotation of fetal head, not applicable or unspecified (principal); O90.81 Anemia of the puerperium; D62 Acute posthemorrhagic anemia; O75.81 Maternal exhaustion complicating labor and delivery; Z37.0 Single live birth; Z3A.40 40 weeks gestation of pregnancy
CPT/HCPCS: 36415; 85007; 85025; 85027; 86850; 86900; 86901; 94664; 99212

== ENCOUNTER 2019-11-16 23:13 | Emergency (ER) | payer BC ==
[~2019-11-16] VITALS: Ht 162 cm; Wt 69.0 kg
[~2019-11-16 23:13] MED LIST changes: +ACHD5005 PO; +DOCU100C37 PO; +FERR325T18 PO; +IBUP-844 PO
[2019-11-16 23:47] VITALS: BP 122/83
[2019-11-17] MEDS ORDERED: RX-TRAMADOL 50 MG (ULTRAM) TAB PPK#4 PO STA (00:06)
[2019-11-17] MEDS ORDERED: AMOX-358 PO (00:09)
[2019-11-17] MEDS ORDERED: LIDO20SO23 MM (00:09)
[2019-11-17] MEDS ORDERED: TRAM-42 PO (00:09)
--- NOTE | 2019-11-17 00:09 | ED EENT ---
History of Present Illness General Chief Complaint: Dental Problems/Pain Stated Complaint: DENTAL PAIN Nursing Triage Note: TO ED VIA POV AND AMBULATORY TO ROOM 6 WITH C/O UNCONTROLLED PAIN POST ROOT CANAL LAST MONDAY. TOOK TYLENOL AT 1999 AND IBUPROFEN AT 2330 THIS EVENING. TOOK LAST DOSE OF AMOXICILLIN TODAY. Source: patient History of Present Illness Date Seen by Provider: Nov 17, 2019 Time Seen by Provider: 00:01 Initial Comments PT ARRIVES VIA POV FROM HOME C/O DENTAL PAIN PT STATES SHE HAD A ROOT CANAL DONE ON 2 TEETH ON Monday11/13/19, BY DR. GAMBOA, [employer], IN [place], [place] TOOK AMOXIL 875 MG FOR A FEW DAYS PRIOR TO PROCEDURE, BUT HAS NOT BEEN ON ANTIBIOTICS SINCE THE PROCEDURE PT HAS BEEN USING PRESCRIBED MOUTH RINSE, AND TOOK A TYLENOL AT 1999 AND TOOK AN IBUPROFEN AROUND 2330 HAS HAD INCREASED PAIN YESTERDAY AND TODAY NO FEVER NO INCREASED SWELLING TO FACE NO CHRONIC MEDICAL PROBLEMS HAS FOLLOW UP APPOINTMENT 12/11/19 PCP: [facility], NOE MCCRAY Allergies and Home Medications Allergies Coded Allergies: No Known Drug Allergies (Unverified , 06/16/16) Home Medications Amoxicillin/Potassium Clav 1 Each Tablet, 1 EACH PO BID Prescribed by: ANABELA SAHNI on 11/17/198 Docusate Sodium 100 Mg Capsule, 100 MG PO BID Prescribed by: JAYNE GREEN on 09/01/17840 Ferrous Sulfate 325 Mg Tablet, 325 MG PO daily with meals Prescribed by: JAYNE GREEN on 09/01/17840 Hydrocodone Bit/Acetaminophen 1 Tab Tab, 1-2 TAB PO Q4H PRN for PAIN-MODERATE Prescribed by: JAYNE GREEN on 09/01/17 08 Ibuprofen 600 Mg Tablet, 600 MG PO Q6H Prescribed by: JAYNE GREEN on 09/01/17 0841 Lidocaine HCl 15 Ml Solution, 1-2 ML MM [id number] Prescribed by: ANABELA SAHNI on 11/17/198 Vit W-Ca,Fe,FA(<1 mg) 1 Each Tablet, 1 TAB PO DAILY, (Reported) Tramadol HCl 50 Mg Tablet, 50 MG PO Q4H Prescribed by: ANABELA SAHNI on 11/17/198 Patient Home Medication List Home Medication List Reviewed: Yes Review of Systems Review of Systems Constitutional: no symptoms reported; No chills, No diaphoresis, No fever Eyes: No Symptoms Reported Ears: No Symptoms Reported Nose: no symptoms reported Mouth: see HPI Throat: no symptoms reported Respiratory: no symptoms reported Cardiovascular: no symptoms reported Gastrointestinal: no symptoms reported : No Musculoskeletal: no symptoms reported Skin: no symptoms reported Neurological: No Symptoms Reported Hematologic/Lymphatic: No Symptoms Reported Immunological/Allergic: no symptoms reported Past Fgziuqs-[id number]-Tbxjyi Hx Past Med/Social Hx: Reviewed and Corrections made Patient Social History Alcohol Use: Denies Use Recreational Drug Use: No Smoking Status: Never a Smoker 2nd Hand Smoke Exposure: No Recent Foreign Travel: No Contact w/Someone Who Travel: No Recent Infectious Disease Expo: No Recent Hopitalizations: No Physical Abuse: No Sexual Abuse: No Mistreated: No Fear: No Seasonal Allergies Seasonal Allergies: No Past Medical History Surgeries: Yes (ROOT CANAL 11/13/19) Respiratory: No Cardiac: No Neurological: No Genitourinary: No Gastrointestinal: No Musculoskeletal: No HEENT: Yes (DENTAL PROBLEMS) Cancer: No Psychosocial: No Integumentary: No Blood Disorders: No Physical Exam Vital Signs Vital Signs - First Documented 11/16/19 23:47 Temp 36.9 Pulse 89 Resp 16 B/P (MAP) 122/83 (96) O2 Delivery Room Air Height, Weight, BMI Height: 5'3.00" Weight: 178lbs. 0.0oz. 80.771971wx; 26.00 BMI Method:Stated General Appearance: WD/WN, no apparent distress Eyes: bilateral eye normal inspection Ears: bilateral ear auricle normal Nose: normal inspection Mouth/Throat: pharynx normal, dental tenderness; No excessive drooling, No mandibular swelling; maxillary swelling; No trismus; other (RIGHT UPPER FIRST MOLAR AND FIRST PREMOLAR WITH TENDERNESS AND MILD ADJACENT GUM SWELLING AND INFLAMMATION . VERY SLIGHT SWELLING TO RIGHT CHEEK/MAXILLA AREA. NO OBVIOUS EVIDENCE OF ABSCESS. NO DRAINAGE. ) Neck: non-tender, full range of motion, supple Cardiovascular: regular rate, rhythm, no murmur Respiratory: normal breath sounds Neurologic/Psychiatric: wire stretcher II-XII nml as tested, no motor/sensory deficits, alert, normal mood/affect, oriented x 3 Skin: normal color, warm/dry Progress/Results/Core Measures Results/Orders My Orders Orders - ANABELA SAHNI DO Amoxicillin/Clavulanate Tablet (Augmenti (11/17/19 00:15) Lidocaine 2% Viscous 15 Ml (Xylocaine Vi (11/17/19 00:15) Rx-Tramadol Hcl (Rx-Ultram) (11/17/19 00:06) Medications Given in ED Current Medications Medications Dose Ordered Sig/Enedelia Route Start Time Stop Time Status Last Admin Dose Admin Lidocaine HCl 5 ml ONCE ONCE PO 11/17/19 00:15 11/17/19 00:16 DC 11/17/19 00:27 5 ML Vital Signs/I&O 11/16/19 23:47 Temp 36.9 Pulse 89 Resp 16 B/P (MAP) 122/83 (96) O2 Delivery Room Air Blood Pressure Mean: 96 Departure Impression Primary Impression: POST PROCEDURE DENTAL PAIN Disposition: HOME, SELF-CARE Condition: Stable Departure-Patient Inst. Referrals: [facility] (PCP/Family) Primary Care Physician Patient Instructions: Dental Pain (DC) Add. Discharge Instructions: CONTINUE ALL YOUR PREVIOUS INSTRUCTIONS FROM THE DENTIST TYLENOL 1000 MG / MOTRIN 800 MG 4 TIMES A DAY LOTS OF CLEAR LIQUIDS FOLLOW UP WITH YOUR DENTIST ON MONDAY IF NO BETTER All discharge instructions reviewed with patient and/or family. Voiced understanding. Scripts Tramadol HCl (Ultram) 50 Mg Tablet 50 MG PO Q4H for Pain, #20 TAB Prov: ANABELA SAHNI DO 11/17/19 Lidocaine HCl (Lidocaine HCl Viscous) 15 Ml Solution 1-2 ML MM [id number], #120 ML Prov: ANABELA SAHNI DO 11/17/19 Amoxicillin/Potassium Clav (Augmentin 875-125 Tablet) 1 Each Tablet 1 EACH PO BID for 10 Days, #20 TAB Prov: ANABELA SAHNI DO 11/17/19 ANABELA SAHNI DO Nov 17, 2019 00:09
[2019-11-17] MEDS ORDERED: LIDOCAINE 2% VISCOUS 15 ML UDC PO ONE (00:15)
[2019-11-17] MEDS ORDERED: AUGMENTIN 875 MG TAB (AMOXICILLIN/CLAVULANATE) PO SCH (00:15)
== END 2019-11-17 00:29 | disposition home or self-care (01) ==
LOC: EDUNIT# 23:13 → ER 23:16
DX: Z98.818 Other dental procedure status (principal)
CPT/HCPCS: 99283